=== PATIENT | female | born 1965 | race Two or more races ===

== ENCOUNTER 2018-01-18 14:14 | Emergency (ER) | payer SELFPAY ==
[~2018-01-18] VITALS: Ht 165.1 cm; Wt 76.0 kg
[2018-01-18] MEDS ORDERED: MORPHINE SULFATE 4 MG/ML CPJ (NOT FOR IM USE) IV STA (15:52)
[2018-01-18] MEDS ORDERED: ONDANSETRON HCL 4MG/2ML INJ IV STA (15:52)
[2018-01-18] MEDS ORDERED: SODIUM CHLORIDE 0.9% 1,000 ML IV ONE (15:52)
[2018-01-18] MEDS ORDERED: MORPHINE SULFATE 2 MG/ML CPJ (NOT FOR IM USE) IV STA (16:09)
[2018-01-18 16:54] LABS: BASOPHILS % 0.5 % (0.0-2.0); EOSINOPHILS % 2.2 % (0.0-5.0); HEMATOCRIT. 42.7 % (36.0-48.0); HEMOGLOBIN. 14.4 g/dL (12.0-16.0); LYMPHOCYTES % 20.4 % (20.0-50.0); MEAN CORPUSCULAR HEMOGLOBIN 29.9 pg (28.0-32.0); MEAN CORPUSCULAR VOLUME 88.4 fL (81.0-99.0); MEAN PLATELET VOLUME 9.1 fl (7.4-10.4); MONOCYTES % 3.8 % (2.0-8.0); NEUTROPHILS % 73.1 % (40.0-76.0); PLATELET 235 x1000/uL (130-400); RED BLOOD CELL COUNT 4.83 mill/uL (4.2-5.4); RED CELL DISTRIBUTION WIDTH 12.5 % (11.6-14.6)
[2018-01-18 17:01] LABS: CHLORIDE 107 mEq/L (98-107)
[2018-01-18 17:03] LABS: PROTHROMBIN TIME 10.4 sec (9.1-11.1)
[2018-01-18 17:45] VITALS: BP 135/58
== END 2018-01-18 17:49 | disposition home or self-care (01) ==
LOC: ER 14:14
DX: S30.0XXA Contusion of lower back and pelvis, initial encounter (principal); M54.5 Low back pain; Z90.710 Acquired absence of both cervix and uterus; W10.8XXA Fall (on) (from) other stairs and steps, initial encounter; Y93.89 Activity, other specified; Y92.89 Other specified places as the place of occurrence of the external cause; Y99.8 Other external cause status
CPT/HCPCS: 36415; 72100; 72170; 80053; 85025; 85610; 96374; 96375; 99284; J2270; J2405; J7030